=== PATIENT | female | born 1965 | race Caucasian/White ===

== ENCOUNTER 2016-09-17 02:14 | Emergency (ER) | payer BC ==
[2016-09-17 02:41] VITALS: BMI 46.6
[2016-09-17] MEDS ORDERED: Albuterol/Ipratropium Neb 3 ML NEB NEB ONE (03:04)
[2016-09-17 03:21] LABS: AUTOMATED BASOPHIL 0.9 % (0-2); AUTOMATED EOSINOPHIL 5.6 % (0-5); AUTOMATED LYMPH 26.8 % (17-44); AUTOMATED NEUTROPHIL 54.7 % (45-76); MPV 8.5 fL (7.4-10.4)
[2016-09-17 03:25] LABS: BLOOD UREA NITROGEN 19 MG/DL (7-17); CALC CORRECTED 9.7 MG/DL (8.4-10.2); CALCIUM 9.3 MG/DL (8.4-10.2); CALCULATED OSMOLALITY 269 MOs/Kg (270-290); CHLORIDE 93 mEq/L (98-107); GLUCOSE 463 mg/dL (70-99); SODIUM LEVEL 128 mEq/L (137-146); TOTAL PROTEIN 6.7 G/DL (6.3-8.2)
--- NOTE | 2016-09-17 03:26 | DIRPT ---
CLINICAL DATA: Dyspnea and shortness of breath. Diagnosed today with bronchitis, on medication. EXAM: CHEST 2 VIEW COMPARISON: None. FINDINGS: The heart size and mediastinal contours are within normal limits. Mild bronchitic changes. Both lungs are clear. The visualized skeletal structures are unremarkable. IMPRESSION: Mild bronchitic changes without focal consolidation. Electronically Signed By: Selina Schneider M.D. On: 09/17/2016 03:23
[2016-09-17 03:32] LABS: PARTIAL THROMB. TIME 23.3 SEC (22-35)
--- NOTE | 2016-09-17 04:18 | EDPRACDOC ---
- General Information Information Source: Patient Mode Of Arrival: Car - History of Present Illness HPI: C/o progressive SOB, some mild chest [ain and new onset peripheral edema x 1 week. Dx with bronchitis today and given zpak and tessalon pearls. SOB continued to get worse. Also c/o intermittent random onset cp with sob x 1 month , and is trying to make an appt with cardiology. Possible hx of prior "little NC ", + fam hx of cardiac dx. Med hx = DM, CHF many years ago, polycythemia, asthma , HTN, HDL. -smoker. Shortness of Breath: Mild Relevant History: Reports: Asthma, Heart Failure (CHF) Cough: Reports: Non-productive Rhinorrhea: Reports: None Ear Symptoms: Reports: None SOB Worsens with: Reports: Exertion, Anxiety, Coughing SOB Improves with: Reports: Sitting up Recently treated infections:: Reports: URI Associated Signs and symptoms: Reports: Cough <Rafa Palomares - Last Filed: 09/17/16 05:15> <Karthikeyan Peguero - Last Filed: 09/17/16 05:42> - General Information Chief Complaint: Dyspnea/Resp distress Stated Complaint: SHORT OF BREATH Home Medications: Home Medications Metoprolol Tartrate 100 mg PO BID 06/16/14 Ginkgo Biloba 60 mg PO BID 09/04/14 Losartan/Hydrochlorothiazide [Losartan-Hctz 100-25 mg Tab] 1 tab PO DAILY Canagliflozin [Invokana] 300 mg PO DAILY 11/15/14 Duloxetine [Cymbalta] 30 mg PO .DAILY SEE COMMENTS 10/22/15 Esomeprazole Mag Trihydrate [Nexium] 40 mg PO DAILY 10/25/15 Hydrocodone Bit/Acetaminophen [[place] 5-325 Tablet] 1 each PO Q4H #15 tab Ondansetron HCl [Zofran] 4 mg PO Q6H PRN #20 tab 06/05/16 Sulfamethoxazole/Trimethoprim [Bactrim Ds Tablet] 1 tab PO BID #14 tab 06/05/16 Prednisone [Deltasone, Orasone] 40 mg PO DAILY 5 Days 09/17/16 Allergies/Adverse Reactions: Allergies Allergy/AdvReac Type Severity Reaction Status Date / Time aspirin Allergy Intermediate See Verified 09/17/16 02:44 Comments estrogens, conjugated Allergy Intermediate See Verified 09/17/16 02:44 Comments lansoprazole [From Prevacid] Allergy Intermediate See Verified 09/17/16 02:44 Comments meperidine HCl [From Demerol] Allergy Intermediate See Verified 09/17/16 02:44 Comments omeprazole [From Prilosec] Allergy Intermediate See Verified 09/17/16 02:44 Comments omeprazole magnesium Allergy Intermediate See Verified 09/17/16 02:44 [From Prilosec] Comments Penicillins Allergy Intermediate Rash-Genera Verified 09/17/16 02:44 lized crab Allergy Anaphylaxis Verified 09/17/16 02:44 * metformin Allergy See Verified 09/17/16 02:44 Comments ED Past Medical History - History Reviewed Yes Nurses notes reviewed and agree except as marked - Patient Medical History Cardiac History: Reports: Coronary Artery Disease, Hypertension, Congestive Heart Failure, Heart Attack (? SMALL NC), Cardiac Catheterization ([facility] 2008 NEGATIVE PER PATIENT), Hypercholesterolemia GI/ History: Reports: Kidney Stones, Gastroesophageal Reflux, Ulcer, Diverticulosis Musculoskeletal History: Reports: Arthritis Psychological History: Denies: Depression, Substance Use Disorder Systemic History: Reports: Diabetes Surgical History: Reports: Cholecystectomy, Cardiac Catheterization ([facility] 2008 NEGATIVE PER PATIENT). Denies: Hysterectomy, Tonsillectomy/Adnoidectomy - Family Medical History Reports: Hypertension (PARENTS SIBLINGS), Diabetes (PARENTS AND SIBLINGS ), Cancer (FATHER SKIN AND LIVER CA), Stroke (PATERNAL GF), Cardiac Disorders ( PARENTS SIBLINGS) - Social Medical History Smoking Status: Never smoker Social History: Denies: Substance Use Disorder <Rafa Palomares - Last Filed: 09/17/16 05:15> EDM Review of Systems - Review of Systems ROS Negative Except as Marked: Yes All systems reviewed and were negative except as marked Respiratory: Cough, Shortness of Breath Cardiovascular: Chest Pain Endocrine: Diabetes <Rafa Palomares - Last Filed: 09/17/16 05:15> - Physical Exam Constitutional: Alert Oriented to: Time, Person, Place Last recorded Vital Signs: Last Vital Signs Temp 97.9 F 09/17/16 02:15 Pulse 106 09/17/16 02:15 Resp 30 H 09/17/16 02:15 BP 218/95 H 09/17/16 02:15 Pulse Ox 98 09/17/16 02:15 Oxygen Pulse Oxygen Saturation 98 O2 Device Room Air Oxygen Flow Rate Fraction of Inspired Oxygen ( FIO2) - HEENT Head: Normal Eye Exam: negative: Conjunctival Injection, Scleral Icterus Oropharynx: negative: Drooling TMJ: Normal Nose: No Symptoms Reported Neck: Normal - Respiratory/Cardiovascular Respiratory: Wheezes (bilat, upper and lower) Cardiovascular: Normal - GI Tenderness: Non tender - Musculoskeletal Back: Normal Extremities: Pedal Edema (bilat 1+ edema), Pedal Pulse, Radial Pulse - Integumentary Skin: Normal - Neurologic Mood Description: Normal Thought: Coherent Perception: Normal <Rafa Palomares - Last Filed: 09/17/16 05:15> - Physical Exam Last recorded Vital Signs: Last Vital Signs Temp 97.9 F 09/17/16 02:15 Pulse 106 09/17/16 02:15 Resp 30 H 09/17/16 02:15 BP 218/95 H 09/17/16 02:15 Pulse Ox 98 09/17/16 02:15 Oxygen Pulse Oxygen Saturation 98 O2 Device Room Air Oxygen Flow Rate Fraction of Inspired Oxygen ( FIO2) <Karthikeyan Peguero - Last Filed: 09/17/16 05:42> ED SOB MDM - Results Result Diagrams: 09/17/16 03:00 09/17/16 03:00 Results: WBC 9.1 xk/uL (3.8-10.8) 09/17/16 03:00 RBC 4.71 xM/uL (4.20-5.40) 09/17/16 03:00 Hgb 14.6 g/dL (12.0-16.0) 09/17/16 03:00 Hct 42.2 % (36-47) 09/17/16 03:00 MCV 90 fL (81-99) 09/17/16 03:00 MCH 30.9 pg (27-32) 09/17/16 03:00 MCHC 34.5 g/dl (33-36) 09/17/16 03:00 RDW 13.0 % (11.5-14.5) 09/17/16 03:00 Plt Count 187 xk/uL (130-400) 09/17/16 03:00 MPV 8.5 fL (7.4-10.4) 09/17/16 03:00 Neut % (Auto) 54.7 % (45-76) 09/17/16 03:00 Lymph % (Auto) 26.8 % (17-44) 09/17/16 03:00 [place] % (Auto) 12.0 % (3-10) H 09/17/16 03:00 Eos % (Auto) 5.6 % (0-5) H 09/17/16 03:00 Baso % (Auto) 0.9 % (0-2) 09/17/16 03:00 Absolute Neuts (auto) 4.91 xk/uL (1.7-8.2) 09/17/16 03:00 Absolute Lymphs (auto) 2.37 xk/uL (0.65-4.75) 09/17/16 03:00 PT 10.4 SEC (9.2-11.2) 09/17/16 03:00 INR 1.0 09/17/16 03:00 APTT 23.3 SEC (22-35) 09/17/16 03:00 Sodium 128 mEq/L (137-146) L 09/17/16 03:00 Potassium 3.8 mEq/L (3.5-5.1) 09/17/16 03:00 Chloride 93 mEq/L (98-107) L 09/17/16 03:00 Carbon Dioxide 25 mMOL/L (22-33) 09/17/16 03:00 Anion Gap 14 mEq/L (8-16) 09/17/16 03:00 BUN 19 MG/DL (7-17) H 09/17/16 03:00 Creatinine 0.70 MG/DL (0.52-1.04) 09/17/16 03:00 Estimated GFR (MDRD) > 60 mL/min (>=60) 09/17/16 03:00 Glucose 463 mg/dL (70-99) H 09/17/16 03:00 Calculated Osmolality 269 MOs/Kg (270-290) L 09/17/16 03:00 Calcium 9.3 MG/DL (8.4-10.2) 09/17/16 03:00 Corrected Calcium 9.7 MG/DL (8.4-10.2) 09/17/16 03:00 Total Bilirubin 0.7 MG/DL (0.2-1.3) 09/17/16 03:00 AST 28 IU/L (14-36) 09/17/16 03:00 ALT 33 IU/L (9-52) 09/17/16 03:00 Alkaline Phosphatase 128 IU/L (38-126) H 09/17/16 03:00 Troponin I < 0.01 ng/mL (<.04) 09/17/16 03:00 Dne-C-Ptnvfwgbpsu Pept 137 pg/mL (0-450) 09/17/16 03:00 Total Protein 6.7 G/DL (6.3-8.2) 09/17/16 03:00 Albumin 3.6 G/DL (3.5-5.0) 09/17/16 03:00 Lab Results 09/17/16 09/17/16 09/17/16 03:00 03:00 03:00 WBC 9.1 RBC 4.71 Hgb 14.6 Hct 42.2 MCV 90 MCH 30.9 MCHC 34.5 RDW 13.0 Plt Count 187 MPV 8.5 Neut % (Auto) 54.7 Lymph % (Auto) 26.8 [place] % (Auto) 12.0 H Eos % (Auto) 5.6 H Baso % (Auto) 0.9 Absolute Neuts (auto) 4.91 Absolute Lymphs (auto) 2.37 PT 10.4 INR 1.0 APTT 23.3 Sodium Potassium Chloride Carbon Dioxide Anion Gap BUN Creatinine Estimated GFR (MDRD) Glucose Calculated Osmolality Calcium Corrected Calcium Total Bilirubin AST ALT Alkaline Phosphatase Troponin I Thl-D-Febxumnzbtv Pept 137 Total Protein Albumin 09/17/16 03:00 WBC RBC Hgb Hct MCV MCH MCHC RDW Plt Count MPV Neut % (Auto) Lymph % (Auto) [place] % (Auto) Eos % (Auto) Baso % (Auto) Absolute Neuts (auto) Absolute Lymphs (auto) PT INR APTT Sodium 128 L Potassium 3.8 Chloride 93 L Carbon Dioxide 25 Anion Gap 14 BUN 19 H Creatinine 0.70 Estimated GFR (MDRD) > 60 Glucose 463 H Calculated Osmolality 269 L Calcium 9.3 Corrected Calcium 9.7 Total Bilirubin 0.7 AST 28 ALT 33 Alkaline Phosphatase 128 H Troponin I < 0.01 Gix-M-Nxkmjdvufqe Pept Total Protein 6.7 Albumin 3.6 - EKG EKG #1 EKG Time: 03:00 -: Yes EKG interpreted by me Rate: bpm: 90 Rhythm: NSR ST: Nonsp - Diagnostic Imaging Chest Image interpreted by: Radiologist Diagnostic Imaging Comments: EXAM: CHEST 2 VIEW COMPARISON: None. FINDINGS: The heart size and mediastinal contours are within normal limits. Mild bronchitic changes. Both lungs are clear. The visualized skeletal structures are unremarkable. IMPRESSION: Mild bronchitic changes without focal consolidation. Electronically Signed By: Selina Schneider M.D. On: 09/17/2016 03:23 <Rafa Palomares - Last Filed: 09/17/16 05:15> - Re-evaluation Re-evaluation 1 Re-evaluation Time: 05:41 (feels improved, plan d/c home RX provided) - Results Result Diagrams: 09/17/16 03:00 09/17/16 03:00 Results: WBC 9.1 xk/uL (3.8-10.8) 09/17/16 03:00 RBC 4.71 xM/uL (4.20-5.40) 09/17/16 03:00 Hgb 14.6 g/dL (12.0-16.0) 09/17/16 03:00 Hct 42.2 % (36-47) 09/17/16 03:00 MCV 90 fL (81-99) 09/17/16 03:00 MCH 30.9 pg (27-32) 09/17/16 03:00 MCHC 34.5 g/dl (33-36) 09/17/16 03:00 RDW 13.0 % (11.5-14.5) 09/17/16 03:00 Plt Count 187 xk/uL (130-400) 09/17/16 03:00 MPV 8.5 fL (7.4-10.4) 09/17/16 03:00 Neut % (Auto) 54.7 % (45-76) 09/17/16 03:00 Lymph % (Auto) 26.8 % (17-44) 09/17/16 03:00 [place] % (Auto) 12.0 % (3-10) H 09/17/16 03:00 Eos % (Auto) 5.6 % (0-5) H 09/17/16 03:00 Baso % (Auto) 0.9 % (0-2) 09/17/16 03:00 Absolute Neuts (auto) 4.91 xk/uL (1.7-8.2) 09/17/16 03:00 Absolute Lymphs (auto) 2.37 xk/uL (0.65-4.75) 09/17/16 03:00 PT 10.4 SEC (9.2-11.2) 09/17/16 03:00 INR 1.0 09/17/16 03:00 APTT 23.3 SEC (22-35) 09/17/16 03:00 Sodium 128 mEq/L (137-146) L 09/17/16 03:00 Potassium 3.8 mEq/L (3.5-5.1) 09/17/16 03:00 Chloride 93 mEq/L (98-107) L 09/17/16 03:00 Carbon Dioxide 25 mMOL/L (22-33) 09/17/16 03:00 Anion Gap 14 mEq/L (8-16) 09/17/16 03:00 BUN 19 MG/DL (7-17) H 09/17/16 03:00 Creatinine 0.70 MG/DL (0.52-1.04) 09/17/16 03:00 Estimated GFR (MDRD) > 60 mL/min (>=60) 09/17/16 03:00 Glucose 463 mg/dL (70-99) H 09/17/16 03:00 Calculated Osmolality 269 MOs/Kg (270-290) L 09/17/16 03:00 Calcium 9.3 MG/DL (8.4-10.2) 09/17/16 03:00 Corrected Calcium 9.7 MG/DL (8.4-10.2) 09/17/16 03:00 Total Bilirubin 0.7 MG/DL (0.2-1.3) 09/17/16 03:00 AST 28 IU/L (14-36) 09/17/16 03:00 ALT 33 IU/L (9-52) 09/17/16 03:00 Alkaline Phosphatase 128 IU/L (38-126) H 09/17/16 03:00 Troponin I < 0.01 ng/mL (<.04) 09/17/16 03:00 Pfa-W-Pdycfawnvax Pept 137 pg/mL (0-450) 09/17/16 03:00 Total Protein 6.7 G/DL (6.3-8.2) 09/17/16 03:00 Albumin 3.6 G/DL (3.5-5.0) 09/17/16 03:00 Urine Color Yellow 09/17/16 04:10 Urine Clarity Clear 09/17/16 04:10 Urine pH 8.0 (5.0-8.0) 09/17/16 04:10 Ur Specific [place] 1.005 (1.003-1.035) 09/17/16 04:10 Urine Protein 2+ (NEG/TRACE) H 09/17/16 04:10 Urine Glucose (UA) 3+ (NEGATIVE) H 09/17/16 04:10 Urine Ketones Neg (NEGATIVE) 09/17/16 04:10 Urine Occult Blood 2+ (NEG/TRACE) H 09/17/16 04:10 Urine Nitrite Neg (NEGATIVE) 09/17/16 04:10 Urine Bilirubin Neg (NEGATIVE) 09/17/16 04:10 Urine Urobilinogen <2.0 MG/DL (0-1) 09/17/16 04:10 Ur Leukocyte Esterase Neg (NEGATIVE) 09/17/16 04:10 Urine RBC 5-10 (0-5) H 09/17/16 04:10 Urine WBC 0-2 (0-5) 09/17/16 04:10 Ur Epithelial Cells 1+ 09/17/16 04:10 Urine Bacteria Few (NEG/FEW) 09/17/16 04:10 Lab Results 09/17/16 09/17/16 09/17/16 04:10 03:00 03:00 WBC RBC Hgb Hct MCV MCH MCHC RDW Plt Count MPV Neut % (Auto) Lymph % (Auto) [place] % (Auto) Eos % (Auto) Baso % (Auto) Absolute Neuts (auto) Absolute Lymphs (auto) PT 10.4 INR 1.0 APTT 23.3 Sodium Potassium Chloride Carbon Dioxide Anion Gap BUN Creatinine Estimated GFR (MDRD) Glucose Calculated Osmolality Calcium Corrected Calcium Total Bilirubin AST ALT Alkaline Phosphatase Troponin I Ugr-O-Yytwjbpcuey Pept 137 Total Protein Albumin Urine Color Yellow Urine Clarity Clear Urine pH 8.0 Ur Specific [place] 1.005 Urine Protein 2+ H Urine Glucose (UA) 3+ H Urine Ketones Neg Urine Occult Blood 2+ H Urine Nitrite Neg Urine Bilirubin Neg Urine Urobilinogen <2.0 Ur Leukocyte Esterase Neg Urine RBC 5-10 H Urine WBC 0-2 Ur Epithelial Cells 1+ Urine Bacteria Few 09/17/16 09/17/16 03:00 03:00 WBC 9.1 RBC 4.71 Hgb 14.6 Hct 42.2 MCV 90 MCH 30.9 MCHC 34.5 RDW 13.0 Plt Count 187 MPV 8.5 Neut % (Auto) 54.7 Lymph % (Auto) 26.8 [place] % (Auto) 12.0 H Eos % (Auto) 5.6 H Baso % (Auto) 0.9 Absolute Neuts (auto) 4.91 Absolute Lymphs (auto) 2.37 PT INR APTT Sodium 128 L Potassium 3.8 Chloride 93 L Carbon Dioxide 25 Anion Gap 14 BUN 19 H Creatinine 0.70 Estimated GFR (MDRD) > 60 Glucose 463 H Calculated Osmolality 269 L Calcium 9.3 Corrected Calcium 9.7 Total Bilirubin 0.7 AST 28 ALT 33 Alkaline Phosphatase 128 H Troponin I < 0.01 Bpn-E-Iqqdrjbqtfr Pept Total Protein 6.7 Albumin 3.6 Urine Color Urine Clarity Urine pH Ur Specific [place] Urine Protein Urine Glucose (UA) Urine Ketones Urine Occult Blood Urine Nitrite Urine Bilirubin Urine Urobilinogen Ur Leukocyte Esterase Urine RBC Urine WBC Ur Epithelial Cells Urine Bacteria <Karthikeyan Peguero - Last Filed: 09/17/16 05:42> - Departure Disposition: Home Education/Counseling Given To: Patient Education/Counseling Given Regarding: Diagnosis, Treatment, Prognosis <Rafa Palomares - Last Filed: 09/17/16 05:15> Decision Time to Discharge: 05:41 - Departure Yes I personally saw and evaluated the patient. Disposition: Home <Karthikeyan Peguero - Last Filed: 09/17/16 05:42> - Departure Condition: Stable Final Diagnosis: Bronchitis, Asthma attack Instructions: Asthma (ED) Referrals: Kristen Yarbrough NP [Primary Care Provider] - One Week Prescriptions: New Prednisone [Deltasone, Orasone] 40 mg PO DAILY 5 Days No Action Metoprolol Tartrate 100 mg PO BID Ginkgo Biloba 60 mg PO BID Losartan/Hydrochlorothiazide [Losartan-Hctz 100-25 mg Tab] 1 tab PO DAILY Canagliflozin [Invokana] 300 mg PO DAILY Duloxetine [Cymbalta] 30 mg PO .DAILY SEE COMMENTS Esomeprazole Mag Trihydrate [Nexium] 40 mg PO DAILY Hydrocodone Bit/Acetaminophen [[place] 5-325 Tablet] 1 each PO Q4H #15 tab Ondansetron HCl [Zofran] 4 mg PO Q6H PRN #20 tab PRN Reason: Nausea/Vomiting Sulfamethoxazole/Trimethoprim [Bactrim Ds Tablet] 1 tab PO BID #14 tab Additional Instructions: Follow up with primary care and cardiology. Return to ED for any new or worsening symptoms.
[2016-09-17] MEDS ORDERED: METHYLPREDNISOLONE 125 MG/2 ML VIAL IV ONE (04:23)
[2016-09-17] MEDS ORDERED: ALBUTEROL 6.7 GM MDI INH ONE (04:23)
[2016-09-17 04:28] LABS: LEUKOCYTES/URINE NEG (NEGATIVE); NITRITE/URINE NEG (NEGATIVE); URINE OCCULT BLOOD 2+ (NEG/TRACE); WBC/URINE 0-2 (0-5)
[2016-09-17] MEDS ORDERED: PREDNISONE 10 MG TAB PO ONE (04:29)
[2016-09-17 06:04] VITALS: BP 169/90; PULSE 114; TEMP 98.1
== END 2016-09-17 05:55 | disposition home or self-care (01) ==
LOC: ED 02:14
DX: J40 Bronchitis, not specified as acute or chronic (principal); J45.998 Other asthma
CPT/HCPCS: 36415; 71020; 80053; 81001; 83880; 84484; 85025; 85610; 85730; 93005; 94640; 99283; J3490; J7620